=== PATIENT | male | born 1950 | race African-American/Black ===

== ENCOUNTER → 2016-05-02 | Outpatient (CLI) | payer MEDICARE ==
[~2016-05-02] MED LIST: GEMF600T3 PO; LISI40TA4 PO; NIFE90TA7 PO; TRIA1CAP6 PO
== END | disposition home or self-care (01) ==
LOC: RADPV 08:43
PROVIDERS: ATTEND Specialist
DX: R41.3 Other amnesia (principal); R94.01 Abnormal electroencephalogram [EEG]
CPT/HCPCS: 95816